=== PATIENT | female | born 1950 | race Caucasian/White ===

== ENCOUNTER → 2017-06-06 08:03 | Outpatient (REF) | payer SELFPAY ==
[2017-06-06 10:16] LABS: International Normalized Ratio 2.4; Prothrombin Time (Protime)PT. 25.2 SECONDS (11.7-14.9)
== END ==
LOC: OLS.ACW200 08:03
PROVIDERS: Visit Provider Family Medicine
DX: K72.90 Hepatic failure, unspecified without coma (principal); E44.0 Moderate protein-calorie malnutrition; K75.4 Autoimmune hepatitis; M62.81 Muscle weakness (generalized); R49.1 Aphonia; Z51.89 Encounter for other specified aftercare
CPT/HCPCS: 36415; 82140; 85610

== ENCOUNTER → 2017-06-23 05:00 | Outpatient (REF) | payer MEDICARE, SELFPAY ==
[2017-06-23 07:54] LABS: International Normalized Ratio 1.6; Prothrombin Time (Protime)PT. 18.6 SECONDS (11.7-14.9)
== END ==
LOC: OLS.ACW200 05:00
PROVIDERS: Visit Provider Family Medicine
DX: K72.90 Hepatic failure, unspecified without coma (principal); E44.0 Moderate protein-calorie malnutrition; K75.4 Autoimmune hepatitis; M62.81 Muscle weakness (generalized); Z51.89 Encounter for other specified aftercare; R49.1 Aphonia
CPT/HCPCS: 36415; 85610